=== PATIENT | female | born 1945 | race Caucasian/White ===

== ENCOUNTER 2025-03-19 10:32 | Emergency (ER) | payer MEDICARE, BC ==
[~2025-03-19] VITALS: Ht 165.1 cm; Wt 79.6 kg
[2025-03-19 10:35] VITALS: TEMP 97.7
[2025-03-19 11:23] LABS: LEUKOCYTE ESTERASE ,URINE SMALL (Neg); NITRITES, URINE NEGATIVE (Neg); OCCULT BLOOD,URINE NEGATIVE (Neg)
--- NOTE | 2025-03-19 11:24 | RADIOLOGY REPORT ---
EXAM: DI RIBS,UNILAT DATE OF SERVICE: 03/19/2025 11:02 AM ORDERING PHYSICIAN: ROBIN AVILA REASON FOR EXAM: LEFT RIBS PAIN fall TECHNIQUE: Single view of the chest was obtained. AP and lateral views of the left-sided ribs were obtained. COMPARISON: None FINDINGS: The heart size and pulmonary vasculature are normal. The lungs are clear. There is no acute left-sided rib fracture. No pneumothorax is seen. IMPRESSION: No acute cardiopulmonary process. No acute left-sided rib fracture.
[2025-03-19 11:50] LABS: UA COLLECTION TYPE CLN CATCH MIDSTREAM
[2025-03-19 11:54] LABS: SQUAMOUS EPITHELIAL CELL,UR FEW /LPF (FEW)
--- NOTE | 2025-03-19 12:19 | Physician Documentation ---
History of Present Illness ~ Chief Complaint: Mechanical Fall Stated Complaint: FALL RIB PAIN Time Seen by MD: 10:47 Mode of Arrival: POV, Ambulatory HPI 79 year old female with L rib pain after fall about 6 days ago. Denies fever, reports painful cough. Also believes she has a UTI with some dysuria but no flank pain. Is ambulatory, no headache, no blood thinners, no head strike. Tetanus within 5 Years?: No Medication Reconciliation Allergies: Coded Allergies: No Known Allergies (Unverified , 03/19/25) Review of Systems All Other Systems at this time: Reviewed and Negative Physical Exam Vital Signs: RN Vital Signs have been reviewed: Yes, Temperature: 97.7, Source: Oral, Heart Rate: 88, Respiratory Rate: 16, BP: 140/98, Pulse Oximetry: 96, Weight: 79.600 Oxygen Flow Rate: 0 Physical Exam Gen: no distress HEENT: PERRL, EOMI Pulm: no distress CTAB CV: deferred Abd: deferred MSK: no deformity Skin: w/d/i Psych: unremarkable Progress Results/Orders Results/Orders Orders - ROBIN AVILA MD, Unilat (03/19/25 10:47) Cult Urine + [address] (03/19/25 11:55) Completed Orders - ROBIN AVILA MD, Unilat (03/19/25 10:47) Ua W/Microscopic, Cult If Ind (03/19/25 10:45) Vital Signs 03/19/25 03/19/25 03/19/25 10:35 11:15 12:09 Temp 97.7 Pulse 71 88 Resp 16 16 16 B/P (MAP) 175/83 140/98 (112) Pulse Ox 96 96 O2 Flow Rate 0 Laboratory Tests Test 03/19/25 10:45 Urine Specimen Description Cln catch midstream Urine Color Yellow Urine Clarity Clear Urine pH 6.5 Urine Specific Elmer <=1.005 Urine Protein Negative Urine Glucose (UA) Negative Urine Ketones Negative Urine Occult Blood Negative Urine Nitrite Negative Urine Bilirubin Negative Urine Urobilinogen 0.2 Urine Leukocyte Esterase Small H Urine RBC None seen Urine WBC 5-10 H Urine Squamous Epithelial Cells Few Urine Bacteria 1+ Urine Culture Indicated Indicated Volume Urine Centrifuged 10 ml Urine Comment Medical Decision Making Additional information obtaine: other Findings 79 year old female with L rib pain after fall, and possible UTI. Xray interpreted by me demonstrated no rib fracture, no PTX, no PNA. UA demonstrated evidence of UTI. Rx ABx return precautions. Differential Dx:Considerations: Include: Other Additional Comment Ddx includes UTI, rib fracture, PNA, contusion Departure Disposition: HOME / SELF CARE / HOMELESS Impression: Primary Impression: Rib pain Additional Impression: UTI (urinary tract infection) Condition: Stable Discharge Instructions: Fall Prevention in the Home, Adult, [id number] Referrals: NO PRIMARY CARE PROVIDER (PCP) Prescriptions Nitrofurantoin Monohyd/M-Cryst (Macrobid 100 mg Capsule) 100 Mg Capsule 1 CAP PO Q12H for 7 Days, #14 CAP 0 Refills Prov: ROBIN AVILA MD 03/19/25 Education Educated: Patient Educated regarding: diagnosis, treatment, prognosis, need for follow up Signature Scribe Signature: . Attestation: . ROBIN AVILA MD Mar 19, 2025 12:19
[2025-03-19] MEDS ORDERED: NITR100C6 PO (12:21)
[2025-03-19] MEDS: nitrofuran monohydrate/nitrofuran macrocrysal 100 MG (MacroBID) capsule PO ONE (12:22)
[2025-03-19 13:02] VITALS: BP 128/71; PULSE 71; RESP 16; O2SAT 95
== END 2025-03-19 13:03 | disposition home or self-care (01) ==
LOC: ER 10:33
DX: R07.89 Other chest pain (principal); N39.0 Urinary tract infection, site not specified
CPT/HCPCS: 71100; 81001; 87077; 87088; 87186; 99284